=== PATIENT | male | born 1955 | race Caucasian/White ===

== ENCOUNTER 2020-03-07 13:26 | Emergency (ER) | payer BC ==
[~2020-03-07] VITALS: Ht 182.9 cm; Wt 102.0 kg
[~2020-03-07 13:26] MED LIST: ASPI-1 PO; HYDR-4383 PO; LINE600T14 PO; LOSA50TA64 PO; PIND5TAB2 PO
--- NOTE | 2020-03-07 14:42 | NUR ---
pt offered pain meds and refused.
[2020-03-07] MEDS ORDERED: CLIN-97 PO (15:13)
[2020-03-07 15:36] VITALS: BP 136/101
== END 2020-03-07 15:39 | disposition home or self-care (01) ==
LOC: ER 13:26
DX: S80.01XA Contusion of right knee, initial encounter (principal); S80.811A Abrasion, right lower leg, initial encounter; L03.115 Cellulitis of right lower limb; M79.89 Other specified soft tissue disorders; I48.91 Unspecified atrial fibrillation; I10 Essential (primary) hypertension; Z98.890 Other specified postprocedural states; Z88.0 Allergy status to penicillin; Z79.82 Long term (current) use of aspirin; Z79.2 Long term (current) use of antibiotics; Z79.899 Other long term (current) drug therapy; W19.XXXA Unspecified fall, initial encounter; Y93.89 Activity, other specified; Y92.89 Other specified places as the place of occurrence of the external cause; Y99.8 Other external cause status
CPT/HCPCS: 73564; 73590; 99284